=== PATIENT | male | born 1945 | race Caucasian/White ===

== ENCOUNTER 2019-03-12 10:36 | Emergency (ER) | payer BC ==
--- OUTSIDE RECORDS SUMMARY | 2019-03-12 10:56 | XMS REPORT | Summary of Care ---
:1945 Author Organization [facility] Address [address] [place] [address] Care Team Providers Name Role Phone Fred Jerez Primary Care Provider Reason for Visit Reason Comments Diabetes Mellitus 3 month f/u Encounter Details Date Type Department Care Team Description 02/08/2019 Office Visit Fred Louise Need for vaccination (Primary Dx); Patricia Vinson MD Type 2 diabetes mellitus without complication, without long-term current use of insulin ([facility]); [address] [facility] [address] [place] [address] Essential hypertension; [place], [place] [id number] [place] [id number] Mixed hyperlipidemia [phone] Allergies Active Allergy Reactions Severity Noted Date Comments Statins 06/23/2007 MUSCLE / JOINT PAIN documented as of this encounter (statuses as of 02/08/2019) Medications Medication Sig Dispensed Refills Start Date End Date Status Lancets Does not apply by Does not apply 100 Each 3 03/16/2016 Active Misc route. Brand:Accu check Hortencia Plus Dx:E11.9 non-Insulin dependent Test Blood Glucose 1 time(s) A DAY IBUPROFEN 200 PO Take by mouth 0 Active NEEDED. Glucose Blood In Vitro 100 Strips by In 100 Strip 3 07/06/2017 Active Strip Vitro route DAILY. contolled non-insulin dependent diabetes DX: E11.9 Accu check Hortencia Plus test strips metFORMIN HCL 750 MG Take 2 Tabs by 180 Tab 5 03/15/2018 Active Oral TABLET SR 24 HR mouth EVERY EVENING. 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 Set realistic goal of 1# wt reduction /week set 10 week goals. BMI 28.0-28.9,adult 12/02/2010 10/05/2011 Personal History of Tobacco Use 06/23/2007 06/24/2007 Overview: QUIT 30 YEARS AGO Hypercholesterolemia 06/23/2007 08/03/2017 Hypersomnia, unspecified 05/27/2006 03/08/2017 documented as of this encounter (statuses as of 02/08/2019) Immunizations Name Administration Dates Next Due Influenza (IM) Preservative Free 05/12/2012, 04/04/2008 Influenza Vaccine 65 Yrs + 02/08/2019 Influenza Vaccine High Dose 03/15/2018, 03/08/2017, 04/22/2016 Influenza Vaccine Whole 03/31/2006 PNEUMOCOCCAL POLYSACCHARIDE VACCINE 02/18/2018 Pneumococcal Conjugate(13 Valent) 07/15/2016 TDAP Vaccine 11/04/2016 ZOSTER (SHINGRIX) VACCINE 02/08/2019 documented as of this encounter Social History Tobacco Use Types Packs/Day Years Used Date Former Smoker Cigarettes 0.25 6 Quit: 01/09/1973 Smokeless Tobacco: Never Used Comments: quit > 30 years Alcohol Use Drinks/Week oz/Week Comments Yes 1 Standard drinks or equivalent 0.8 Sex Assigned at Date Recorded Not on file Job Start Date Occupation Industry Not on file Not on file Not on file Travel History Travel Start Travel End No recent travel history available. documented as of this encounter Last Filed Vital Signs Vital Sign Reading Time Taken Comments Blood Pressure 130/84 02/08/2019 10:10 AM EDT Pulse 76 02/08/2019 10:10 AM EDT Temperature - - Respiratory Rate - - Oxygen Saturation 95% 02/08/2019 10:10 AM EDT Inhaled Oxygen Concentration - - Weight 77.1 kg (170 lb) 02/08/2019 10:10 AM EDT Height 172.7 cm (5' 8") 02/08/2019 10:10 AM EDT Body Mass Index 25.85 02/08/2019 10:10 AM EDT documented in this encounter Patient Instructions Patient InstructionsFred Jerez MD - 02/08/2019 10:20 AM EDTYou are doing very well continue current medications Please increase your daily exercise The goal with exercise is to walk 30-40 minutes at a 3-4 mph pace on 5-7 days per week. Nurse visit 3 month for shingrix vaccine #2 and diabetes mellitus blood work Follow up me diabetes mellitus 3.5 months documented in this encounter Progress Notes Fred Jerez MD - 02/08/2019 10:20 AM EDT PATIENT: Kevin Pina : 1945 DATE OF SERVICE: 02/08/2019 CHIEF COMPLAINT: Chief Complaint Patient presents with Diabetes Mellitus 3 month f/u Subjective HISTORY OF PRESENT ILLNESS: Kevin Pina is a 73-y.o. male. HPI Follow up to diabetes mellitus hypertension and cholesterol He is walking daily and on low carbohydrate low fat diet he has lost weight Wt Readings from Last 3 Encounters: 02/08/19 170 lb (77.1 kg) 12/26/18 175 lb (79.4 kg) 12/26/18 175 lb (79.4 kg) labs reviewed Lab Results Component Value Date GLYCO 7.0 (H) 02/01/2019 no diabetes mellitus related symptoms no hypoglycemia He does finger stick three times weekly it runs 120-140 range am premeal No eye or neuropathy Symptoms Patient Active Problem List Diagnosis Obstructive sleep apnea Rosacea Personal history of colonic polyps Restless leg syndrome Controlled type 2 diabetes mellitus without complication, without long- term current use of insulin (HCC) Essential hypertension Mixed hyperlipidemia Squamous cell carcinoma of skin of right earlobe Family History Problem Relation Age of Onset Lipids Mother HIGH CHOLESTEROL Heart Father was very heavy/4ppd tob Hypertension Mother age 85 d/x recently Current Outpatient Medications Medication Sig Glucose Blood In Vitro Strip 100 Strips by In Vitro route DAILY. contolled non-insulin dependent diabetes DX: E11.9 Accu check Hortencia Plus test strips IBUPROFEN 200 PO Take by mouth NEEDED. Lancets Does not apply Misc by Does not apply route. Brand:Accu check Hortencia Plus Dx:E11.9 non-Insulin dependent Test Blood Glucose 1 time(s) A DAY lisinopril (PRINIVIL, ZESTRIL) 20 MG Oral Tab TAKE ONE TABLET BY MOUTH EVERY DAY metFORMIN HCL 750 MG Oral TABLET SR 24 HR Take 2 Tabs by mouth EVERY EVENING. Rosuvastatin Calcium (CRESTOR) 10 MG Oral Tab TAKE ONE TABLET BY MOUTH DAILY No current facility-administered medications for this visit. Allergies Allergen Reactions Statins MUSCLE / JOINT PAIN Social History Socioeconomic History Marital status: Spouse name: Not on file Number of children: Not on file Years of education: Not on file Highest education level: Not on file Occupational History Not on file Social Needs Financial resource strain: Not on file Food insecurity: Worry: Not on file Inability: Not on file Transportation needs: Medical: Not on file Non-medical: Not on file Tobacco Use Smoking status: Former Smoker Packs/day: 0.25 Years: 6.00 Pack years: 1.50 Types: Cigarettes Last attempt to quit: 01/09/1973 Years since quittin.1 Smokeless tobacco: Never Used Tobacco comment: quit > 30 years Substance and Sexual Activity Alcohol use: Yes Alcohol/week: 0.8 standard drinks Types: 1 Standard drinks or equivalent per week Drug use: No Sexual activity: Yes Partners: Female Lifestyle Physical activity: Days per week: Not on file Minutes per session: Not on file Stress: Not on file Relationships Social connections: Talks on phone: Not on file Gets together: Not on file Attends [employer]ar[employer] service: Not on file Active member of club or organization: Not on file Attends meetings of clubs or organizations: Not on file Relationship status: Not on file Intimate partner violence: Fear of current or ex partner: Not on file Emotionally abused: Not on file Physically abused: Not on file Forced sexual activity: Not on file Other Topics Concern Back Care Not Asked Bike Helmet Not Asked Blood Transfusions No Caffeine Concern Not Asked Exercise Not Asked Hobby Hazards Not Asked International Travel Not Asked Service Not Asked Occupational Exposure Not Asked Seat Belt Not Asked Self-Exams Not Asked Sleep Concern Not Asked Special Diet Not Asked Stress Concern Not Asked Weight Concern Not Asked Social History Narrative . 2 children Retired: now drives school bus Routine exercise: walks 3miles/day or more Pets: 1 cat ROS no gastro-intestinal symptoms no cardiovascular symptoms Objective PHYSICAL EXAM: VITALS: BP 130/84 (BP Location: Right arm, Patient Position: Sitting) | Pulse 76 | Ht 5' 8" (1.727 m) | Wt 170 lb (77.1 kg) | SpO2 95% | BMI 25.85 kg/m Body mass index is 25.85 kg/m. Physical Exam S1 and S2 normal, no murmurs, clicks, gallops or rubs. Regular rate and rhythm. Chest is clear; nowheezes or rales. No edema or JVD. Left foot diabetic exam: Visual exam. Foot appears normal without wounds or signs of infection: yes Sensory exam. Patient can feel the monofilament on the foot: yes Pulse exam. A pulse is palpable at either the foot or ankle: yes Right foot diabetic exam: Visual exam. Foot appears normal without wounds or signs of infection: yes Sensory exam. Patient can feel the monofilament on the foot: yes Pulse exam. A pulse is palpable at either the foot or ankle: yes ASSESSMENT / IMPRESSION: ICD-9-CM ICD-10-CM 1. Need for vaccination V05.9 Z23 [place] SHINGRIX (ZOSTER) ADMINISTRATION VACCINE SINGLE ADMINISTRATION VACCINE EACH ADDITIONAL X__UNITS 2. Type 2 diabetes mellitus without complication, without long-term current use of insulin (HCC) at goal continue current medications add daily walk for exercise 250.00 E11.9 3. Essential hypertension at goal continue current medications 401.9 I10 4. Mixed hyperlipidemia continue current medications 272.2 E78.2 LIPID PROFILE Patient Instructions You are doing very well continue current medications Please increase your daily exercise The goal with exercise is to walk 30-40 minutes at a 3-4 mph pace on 5-7 days per week. Nurse visit 3 month for shingrix vaccine #2 and diabetes mellitus blood work Follow up me diabetes mellitus 3.5 months Fred Jerez MD 02/08/2019 11:45 documented in this encounter Plan of Treatment Date Type Specialty Care Team Description 03/27/2019 Office Visit Internal Medicine Arianna Maier, PA [address] [place] [address] [phone] 05/04/2019 Lab Internal Medicine 05/04/2019 Nurse/Clinical Support Internal Medicine 05/23/2019 Office Visit Internal Medicine Fred Jerez MD [address] [place] [address] [phone] Name Type Priority Associated Diagnoses Order Schedule ADMINISTRATION VACCINE Procedures Routine Need for vaccination Ordered: SINGLE ADMINISTRATION VACCINE Procedures Routine Need for vaccination Ordered: EACH ADDITIONAL X__UNITS LIPID PROFILE Lab Routine Mixed hyperlipidemia 20 Occurrences starting 02/08/2019 until 02/08/2020 Health Maintenance Due Date Last Done Comments AAA SCREENING/SURVEILLANCE 2012 FOOT EXAM 12/21/2017 12/21/2016, 12/21/2016, 12/21/2016, Additional history exists Diabetic Eye Exam 03/30/2018 03/30/2017 HEMOGLOBIN A1C 05/03/2019 02/01/2019, 10/24/2018, 06/23/2018, Additional history exists DEPRESSION SCREENING 06/23/2019 06/23/2018 FALL RISK ASSESSMENT 06/23/2019 06/23/2018, 06/23/2018 INFLUENZA VACCINE (#1) 2019 03/15/2018, 03/08/2017, Postponed from 04/22/2016, Additional 01/15/2019 (Other) history exists LIPID DISORDER SCREENING 10/25/2019 10/24/2018, 06/17/2018, 06/02/2018, Additional history exists ZOSTER IMMUNIZATION SERIES 02/09/2020 Postponed from (1 of 2) 1997 (Patient refused) COLONOSCOPY SCREENING 01/09/2025 01/09/2015 PNEUMOCOCCAL 65+YRS Completed 02/18/2018, 07/15/2016 HPV IMMUNIZATION SERIES Aged Out No longer eligible based on patient's age to complete this topic MENINGOCOCCAL VACCINE IMM Aged Out No longer eligible based on patient's age to complete this topic documented as of this encounter Goals Goal Patient Goal Associated Recent Patient-Stated? Author Type Problems Progress Blood Pressure Blood Pressure 130/84 No Solitario, < 140/90 (02/08/2019 Fred Vinson, 10:10 AM EDT) Note: This is an individualized treatment (blood pressure) goal for Kevin Trottern: Displayed above (on the left) is your goal for blood pressure control. Your most recent blood pressure is also shown above, on the right. You should try to achieve blood pressures that are lower than your goal listed above (on the left). Glycohemoglobin A1c < 7.0 Diabetes 7.0 (02/01/2019 9:43 AM Fred Pineda, EDT) Note: This is an individualized treatment (diabetes control, HgbA1C) goal for Kevin Dubon Yovani: Displayed above is your progress towards your HgbA1C goal. Your goal is shown above (on the left); your most recent HgbA1C is shown on the right. Note that lower numbers are better. Keep immunizations current Lifestyle Fred Pineda MD Note: This is an individualized lifestyle goal for Kevin Ling Pina: Please be sure to keep up-to-date on recommended immunizations. For example, this would include a yearly influenza vaccine. Immunization status can be seen by looking at the Health Maintenance sections of your [facility], Plan of Care, and any After Visit Summaries. Take all prescribed medications as Self-management Fred Pineda MD directed Note: This is an individualized self-management goal for Kevin Dubon Yovani: Please take all prescribed medications as directed. 1. Do not skip doses. If you cannot afford your medications, talk with your doctor. 2. Use a pill reminder system such as a pill box if needed. Your pharmacist can help you with this. 3. Contact your Pharmacy 5 days before your medication runs out. If you cannot take your medications for any reasons, talk with your doctor. 4. Please bring all of your medication bottles and inhalers (or a list of all your medications/inhalers) with you to every visit. Potential barriers to meeting all of your care plan goals will continue to be addressed on an ongoing basis. documented as of this encounter Results Not on filedocumented in this encounter Visit Diagnoses Diagnosis Need for vaccination - Primary Need for prophylactic vaccination and inoculation against unspecified single disease Type 2 diabetes mellitus without complication, without long-term current use of insulin (HCC) Essential hypertension Unspecified essential hypertension Mixed hyperlipidemia documented in this encounter Insurance Payer Benefit Plan / Subscriber ID Effective Dates Phone Address Type Group [employer] xxxxxxxxxxxx 2013-Present [employer] Name Account Type Relation to Date of Phone Billing Patient Address Yovani,Kevin Dubon Personal/Family 1945 [address] (Home) [place], [place] [phone] [id number] (Work) documented as of this encounter
[2019-03-12 11:08] VITALS: BP 129/77
--- NOTE | 2019-03-12 12:05 | UC ---
Skin Complaint HPI - HPI Summary HPI Summary: Pt presents with sudden onset of diffuse hives over body that started 2 days ago. Pt is unsure what he may be allergic to. He also reports just prior to urticaria, he felt nauseous and vomited X 1. Pt has used benadryl cream with no improvement in hives. - History of Current Complaint Chief Complaint: UCSkin Time Seen by Provider: 03/12/19 11:01 Stated Complaint: SKIN CONCERN,NAUSEA Hx Obtained From: Patient Onset/Duration: Sudden Onset, Lasting Days, Still Present Timing: Constant Onset Severity: Moderate Current Severity: Moderate Pain Intensity: 0 Pain Scale Used: 0-10 Numeric Location: Diffuse Character: Pruritus, Redness, Raised Aggravating Factor(s): Touch Alleviating Factor(s): Nothing Associated Signs & Symptoms: Positive: Rash Related History: Possible Reaction to: Environmental Exposure - Pt stayed at a relatives house when the urticaria began - Allergy/Home Medications Allergies/Adverse Reactions: Allergies Allergy/AdvReac Type Severity Reaction Status Date / Time No Known Allergies Allergy Verified 03/12/19 11:08 Home Medications: Home Medications Lisinopril 10 mg PO DAILY 03/12/19 [History Confirmed 03/12/19] Simvastatin 20 mg PO DAILY 03/12/19 [History Confirmed 03/12/19] metFORMIN* [Glucophage 500 MG TAB *] 500 mg PO DAILY 03/12/19 [History Confirmed 03/12/19] PMH/Surg Hx/FS Hx/Imm Hx Previously Healthy: Yes Endocrine History: Diabetes Cardiovascular History: Cardiac Disease, Hypertension - Surgical History Surgical History: Yes Surgery Procedure, Year, and Place: Skin cancer removal on right ear 2019; umbilical hernia repair; shoulder surgery - Family History Known Family History: Positive: Cardiac Disease - Social History Occupation: Employed Part-time Lives: With Family Alcohol Use: Occasionally Substance Use Type: None Smoking Status (MU): Former Smoker Have You Smoked in the Last Year: No Review of Systems All Other Systems Reviewed And Are Negative: Yes Constitutional: Positive: Negative Skin: Positive: Rash - urticaria Eyes: Positive: Negative ENT: Positive: Negative Respiratory: Positive: Negative Cardiovascular: Positive: Negative Gastrointestinal: Positive: Negative Genitourinary: Positive: Negative Motor: Positive: Negative Neurovascular: Positive: Negative Musculoskeletal: Positive: Negative Neurological: Positive: Negative Psychological: Positive: Negative Is Patient Immunocompromised?: No Physical Exam Triage Information Reviewed: Yes Appearance: Well-Appearing Vital Signs: Initial Vital Signs Temp 98.2 F 03/12/19 10:59 Pulse 101 03/12/19 10:59 Resp 18 03/12/19 10:59 BP 129/77 03/12/19 10:59 Pulse Ox 98 03/12/19 10:59 Vital Signs Reviewed: Yes Eye Exam: Normal ENT Exam: Normal ENT: Positive: Hearing grossly normal Dental Exam: Normal Neck exam: Normal Respiratory Exam: Normal Cardiovascular Exam: Normal Musculoskeletal Exam: Normal Neurological Exam: Normal Psychological Exam: Normal Skin: Positive: Rashes - diffuse urticaria Course/Dx - Differential Diagnoses - Skin Complaint Differential Diagnoses: Contact Dermatitis, Urticaria - Diagnoses Provider Diagnosis: Urticaria Discharge ED - Sign-Out/Discharge Documenting (check all that apply): Patient Departure All imaging exams completed and their final reports reviewed: No Studies - Discharge Plan Condition: Stable Disposition: HOME Prescriptions: Cetirizine* [ZyrTEC 10 MG TAB*] 10 mg PO DAILY #10 tab diPHENhydraMINE PO* [Benadryl PO 25 MG TAB*] 25 mg PO Q6H PRN #20 tab PRN Reason: Hives predniSONE TAB* [Deltasone 20 MG TAB*] 60 mg PO DAILY #12 tab Patient Education Materials: Urticaria (ED) Referrals: Fred Jerez MD [Primary Care Provider] - 2 Days Additional Instructions: Please monitor your blood glucose more frequently due to the use of prednisone for the next 6 days. - Billing Disposition and Condition Condition: STABLE Disposition: Home
== END 2019-03-12 11:34 | disposition home or self-care (01) ==
LOC: UCCORT 10:36
DX: L50.9 Urticaria, unspecified (principal); E11.9 Type 2 diabetes mellitus without complications; I10 Essential (primary) hypertension; Z79.84 Long term (current) use of oral hypoglycemic drugs; Z79.899 Other long term (current) drug therapy; Z87.891 Personal history of nicotine dependence; Z85.828 Personal history of other malignant neoplasm of skin
CPT/HCPCS: 99212; G0463